=== PATIENT | male | born 1955 | race Caucasian/White ===

== ENCOUNTER 2017-07-07 11:47 | Inpatient (IN) | payer MEDICAID ==
[~2017-07-07] VITALS: Ht 175.3 cm; Wt 61.9 kg
[2017-07-07 11:52] VITALS: BP 113/60
[2017-07-07] MEDS ORDERED: MS CONTIN15 MG PO (12:37)
[2017-07-07] MEDS ORDERED: FLOMAX0.4 MG PO (12:38)
[2017-07-07] MEDS ORDERED: MAXZIDE-25 MG1 EACH PO (12:38)
[2017-07-07] MEDS ORDERED: POTASSIUM20 PO (12:38)
[2017-07-07] MEDS ORDERED: GABAPENTIN600 M1 PO (12:39)
[2017-07-07 12:50] LABS: HEMOGLOBIN 10.5 gm/dL (14.0-18.0); MCH 27.9 pg (26.0-34.0); MCHC 33.9 g/dL (28.0-37.0); MCV 82.4 fL (80.0-100.0); MPV 8.1 fl. (7.2-11.1); NUCLEATED RBCS 0 /100WBC; PLATELET COUNT* 270 thou/uL (150-400); RBC 3.76 mil/uL (4.50-6.00); RDW-CV 17.6 % (10.5-14.5); WBC 10.8 thou/uL (4.0-11.0)
[2017-07-07 12:57] LABS: CALCIUM 9.1 mg/dL (8.5-10.1); POTASSIUM 3.4 mmol/L (3.5-5.1)
[2017-07-07 13:12] LABS: ALBUMIN 2.8 g/dL (3.4-5.0); TOTAL BILIRUBIN 0.5 mg/dL (<0.1-1.0)
[2017-07-07 13:18] LABS: ABSOLUTE LYMPHOCYTES 0.8 thou/uL (0.8-5.3); ABSOLUTE MONOCYTES 0.3 thou/uL (0.0-1.2); ABSOLUTE NEUTROPHILS 9.7 thou/uL (1.6-8.1)
[2017-07-07 13:19] LABS: ANISOCYTOSIS 1+; PLATELET ESTIMATE ADEQUATE; POIKILOCYTOSIS 1+
[2017-07-07 14:06] VITALS: BP 84/42
[2017-07-07 14:20] VITALS: BP 87/46
[2017-07-07 20:10] VITALS: BP 109/64
[2017-07-07] MEDS ORDERED: MELATONIN5 M1 PO (21:56)
[2017-07-07] MEDS ORDERED: B12INJ IM (21:57)
[2017-07-08] VITALS: BP 105/64
[2017-07-08 09:30] VITALS: BP 92/43
--- NOTE | 2017-07-09 06:48 | CON ---
[address] [address] CONSULTATION Name: FABIENNE GEORGE Room: [address] IN M.R.#: [id number] Admission: 07/07/17 Attend Phys: Betina Sawyer Discharge: 07/08/17 Date of : 57 Report #: [id number] THIS REPORT FOR: //name// CC: [facility] staff DATE OF SERVICE: 07/08/2017 ATTENDING PHYSICIAN: Tiago Crawford MD. REASON FOR CONSULTATION: Antibiotic management. HISTORY OF PRESENT ILLNESS: A 62-year-old white man admitted to [facility] with stage IV sacral decubitus. Apparently, the patient had an epidural abscess drained at [facility] at [place], [place] sometime in December or January 2017. Ever since, the patient is left weak and developed sacral decubitus. PAST MEDICAL HISTORY: History of Staphylococcus aureus sepsis complicated by epidural abscess requiring surgical intervention at [facility]. Anemia of chronic disease. Weakness. DRUG ALLERGIES: None listed. MEDICATIONS: The patient is currently on treatment with vancomycin 1 gram IV every 12 hours, tamsulosin, melatonin, gabapentin, morphine sulfate, dronabinol, hydrocodone p.r.n., ondansetron p.r.n., morphine sulfate p.r.n., acetaminophen p.r.n. He has also received ceftriaxone 1 g IV on the date of admission. SOCIAL HISTORY: See H and P, old records. FAMILY HISTORY: See H and P, old records. REVIEW OF SYSTEMS: Sacral decubitus pain. Extreme weakness of lower extremities. PHYSICAL EXAMINATION: GENERAL: Chronically ill-appearing man, not toxic looking. VITAL SIGNS: Temperature maximum 100.6, pulse 66, respirations 16, BP 105/64, height 5 feet 9 inches, weight 136.4 pounds. HEENMT: Edentulous. Pharynx okay. NECK: Supple. LUNGS: Clear. HEART: S1, S2. ABDOMEN: [place] [address] CONSULTATION Name: FABIENNE GEORGE Room: [address]#: [id number] Admission: 07/07/17 Attend Phys: Betina Sawyer Discharge: 07/08/17 Date of : 57 Report #: [id number] BACK: Reveals surgical scars left paralumbar area as well as stage IV sacrococcygeal decubitus is clean and no foul odor. EXTREMITIES: No pretibial edema, some redness right thigh. LABORATORY DATA: Sodium 133, potassium 3.4, BUN 24, creatinine 1. SGOT 92. Albumin 2.8 g/dL. WBC 10.9, hemoglobin 10.5, platelets 270,000. Urinalysis is pending. Blood cultures were obtained on the date of admission. They are negative so far. No decubitus cultures obtained. CT scan of the abdomen and pelvis revealed intrahepatic and extrahepatic bile duct dilatation. There is a right kidney cyst. Calcification of the aorta. A small peripheral enhancing fluid collection anterior to the right hip, superior to the right groin. Thickening of proximal small bowel, possible enteritis. Stool retaining colon. Lumbar spine revealed multilevel degenerative disk disease, endplate sclerosis, laminectomies L2-L3, L3-L4 decubitus ulcer, right gluteal area. This is pending distal sacrum, possible osteomyelitis of the coccyx and sacrum. ASSESSMENT: 1. Stage 4 sacrococcygeal decubitus with underlying osteomyelitis. History of epidural abscess, lumbar spine, status post incision and drainage. 2. History of Staphylococcus aureus infection. 3. Hypoalbuminemia. 4. Anemia. SUGGESTIONS: Recommend obtain decubitus culture. Continue vancomycin. The patient will require parenteral antibiotic for 4-6 weeks as for treatment of chronic osteomyelitis. Dr. Crawford, thank you for requesting our suggestions in the care of your patient. <ELECTRONICALLY SIGNED> By: Zelalem Haskins MD 07/09/17 [id number] Haskins MD /nt
== END 2017-07-08 13:12 | disposition left against medical advice (07) | DRG 602 ==
LOC: M.ERS 11:47 → M.TBA-ER 12:48 → M.3W 12:48
PROVIDERS: Physician Assistant; ADMIT Internal Medicine
DX: L03.90 Cellulitis, unspecified (principal); L89.154 Pressure ulcer of sacral region, stage 4; E43 Unspecified severe protein-calorie malnutrition; M46.27 Osteomyelitis of vertebra, lumbosacral region; G62.9 Polyneuropathy, unspecified; F17.210 Nicotine dependence, cigarettes, uncomplicated; I10 Essential (primary) hypertension; D64.9 Anemia, unspecified; E88.09 Other disorders of plasma-protein metabolism, not elsewhere classified; Z53.21 Procedure and treatment not carried out due to patient leaving prior to being seen by health care provider; Z68.20 Body mass index [BMI] 20.0-20.9, adult; Z79.899 Other long term (current) drug therapy